=== PATIENT | female | born 1965 ===

== ENCOUNTER 2025-10-03 10:00 | Day surgery (SDC) | payer OTHER ==
[2025-09-22 11:45] VITALS: BP 140/87
[~2025-10-03] VITALS: Ht 152.4 cm; Wt 66.7 kg
[2025-10-03] MEDS ORDERED: POVIDONE-IODINE 118 ML BOTT TOP ONE (12:45)
[2025-10-03] MEDS ORDERED: IBU600 MG PO (13:23)
[2025-10-03] MEDS ORDERED: ONDANSETRON HCL 2 MG/ML VIAL IV ONE (13:40)
== END 2025-10-03 17:05 | disposition home or self-care (01) ==
LOC: CIR.AMB 10:00
PROVIDERS: ATTEND Obstetrics & Gynecology Gynecology
DX: N85.02 Endometrial intraepithelial neoplasia [EIN] (principal); N95.0 Postmenopausal bleeding; N84.1 Polyp of cervix uteri